=== PATIENT | male | born 1950 | race Caucasian/White ===

== ENCOUNTER 2020-06-20 08:38 | Day surgery (SDC) | payer OTHER ==
[2020-06-16 17:39] LABS: BASOPHILS % (AUTO) 0.5 % (0.0-5.0); EOSINOPHILS % (AUTO) 2.5 % (0.0-8.0); HEMATOCRIT 41.8 % (42-54); LYMPHOCYTES % (AUTO) 32.9 % (21.0-51.0); MEAN CORPUSCULAR HEMOGLOBIN 30.7 pg (27.0-33.0); MEAN CORPUSCULAR HGB CONC 32.3 g/dL (32.0-36.0); MONOCYTES % (AUTO) 10.6 % (3.0-13.0); PLATELET COUNT (AUTO) 274 K/uL (130-400); RED CELL DISTRIBUTION WIDTH 14.1 % (11.0-15.5); WHITE BLOOD COUNT (AUTO) 7.6 K/uL (4.8-10.8)
[2020-06-16 17:43] LABS: CREATININE 1.2 mg/dL (0.5-1.5); POTASSIUM 4.3 mmol/L (3.5-5.1)
[2020-06-16 17:45] LABS: INR 0.99 (0.85-1.15); PARTIAL THROMBOPLASTIN TIME 26.3 SEC (26.3-35.5); PROTHROMBIN TIME 10.7 SEC (9.6-11.6)
[2020-06-19 15:05] VITALS: BP 78/50
--- NOTE | 2020-06-19 16:02 | NUR ---
CARVEDILOL PATIENT ADVISED ON 06/16/2020 TO STOP CARVEDILOL DUE TO LOW BLOOD PRESSURE READING DURING PRE-OP APPT BY Senthil BEAL RN PER REBECCA KEITH. PATIENT STATES HAS CONTINUED CARVEDILOL BECAUSE OF A HIGH BLOOD PRESSURE READING ON 06/17/2020. PATIENT STATES THERE HAS BEEN NO DROP IN BLOOD PRESSURE READINGS.
[2020-06-20] VITALS (12 sets, daily range): BP systolic 108–143; BP diastolic 71–88
[~2020-06-20] VITALS: Ht 182.9 cm; Wt 118.0 kg
[~2020-06-20 08:38] MED LIST: AEC81 PO; ALLO300T2 PO; ATOR40TA69 PO; CARV25TA PO; CLOP75TA14 PO; DIPH50CA4 PO; FLUT16H NASAL; FURO40TA5 PO; GABA600T10 PO; LISI10TA7 PO; METF-445 PO; POTA10CA44 PO
[2020-06-20] MEDS ORDERED: SODIUM CHLORIDE 0.9% 1000ML 1,000 ML IV SCH (09:45)
[2020-06-20] MEDS ORDERED: LIDOCAINE HCL 2% VISCOUS 15 ML UDCUP PO SCH (09:45)
[2020-06-20] MEDS ORDERED: FLUMAZENIL 0.1MG/1ML 5ML VIAL IV ONE (09:57)
[2020-06-20] MEDS ORDERED: FENTANYL CITRATE PF 50 MCG/1 ML 2ML VIAL ONE (09:57)
[2020-06-20] MEDS ORDERED: MIDAZOLAM HCL 1 MG/ML 2ML VIAL ONE (09:58)
--- NOTE | 2020-06-20 13:15 | NUR ---
DISCHARGED HOME WITH , PRINTED AND VERBAL DISCHARGE INSTRUCTIONS GIVEN . VERBALIZES UNDERSTANDING. NO ACUTE DISTRESS NOTED . TO CAR VIA WHEELCHAIR
== END 2020-06-20 13:15 | disposition home or self-care (01) ==
LOC: DAH 08:38
PROVIDERS: ATTEND Internal Medicine Cardiovascular Disease
DX: I25.10 Atherosclerotic heart disease of native coronary artery without angina pectoris (principal); I34.0 Nonrheumatic mitral (valve) insufficiency; I25.2 Old myocardial infarction; I10 Essential (primary) hypertension; E78.5 Hyperlipidemia, unspecified; E11.9 Type 2 diabetes mellitus without complications; Z95.5 Presence of coronary angioplasty implant and graft; Z79.899 Other long term (current) drug therapy; Z79.01 Long term (current) use of anticoagulants
CPT/HCPCS: 36415; 80048; 82948; 85025; 85610; 85730; 93005; 93313; A4215; A4216; A4221; A4222; A4223 ×3; A4606; A4663; J2250; J3010; J7030; 99152; 99153; J3490

== ENCOUNTER → 2020-06-23 | Outpatient (CLI) | payer OTHER ==
[~2020-06-23] MED LIST changes: +REGADENOSON 0.4 MG/5 ML PF SYG IVP SCH
== END | disposition home or self-care (01) ==
LOC: SHCH 08:17
PROVIDERS: ATTEND Internal Medicine Cardiovascular Disease
DX: I10 Essential (primary) hypertension (principal); I34.0 Nonrheumatic mitral (valve) insufficiency
CPT/HCPCS: 78452; 93017; 96374; A9500 ×2; J2785

== ENCOUNTER → 2021-04-23 | Outpatient (CLI) | payer OTHER ==
[~2021-04-23] MED LIST changes: +LISI10TA24 PO; -LISI10TA7 PO; -REGADENOSON 0.4 MG/5 ML PF SYG IVP SCH
== END | disposition home or self-care (01) ==
LOC: SHCH 11:13
PROVIDERS: ATTEND Internal Medicine Cardiovascular Disease
DX: R55 Syncope and collapse (principal); I25.5 Ischemic cardiomyopathy; R06.00 Dyspnea, unspecified; E78.5 Hyperlipidemia, unspecified; E11.9 Type 2 diabetes mellitus without complications
CPT/HCPCS: 93306; 93356

== ENCOUNTER 2021-06-15 05:40 | Day surgery (SDC) | payer OTHER ==
[2021-06-13 12:44] LABS: BASOPHILS % (AUTO) 0.4 % (0.0-5.0); EOSINOPHILS % (AUTO) 1.7 % (0.0-8.0); HEMATOCRIT 43.3 % (42-54); LYMPHOCYTES % (AUTO) 27.3 % (21.0-51.0); MEAN CORPUSCULAR HEMOGLOBIN 31.3 pg (27.0-33.0); MEAN CORPUSCULAR HGB CONC 32.6 g/dL (32.0-36.0); MONOCYTES % (AUTO) 10.9 % (3.0-13.0); NEUTROPHILS % (AUTO) 59.3 % (40.0-77.0); PLATELET COUNT (AUTO) 257 K/uL (130-400); RED BLOOD CELL COUNT(AUTO) 4.51 MIL/uL (4.50-6.20); RED CELL DISTRIBUTION WIDTH 14.6 % (11.0-15.5); WHITE BLOOD COUNT (AUTO) 8.3 K/uL (4.8-10.8)
[2021-06-13 12:53] LABS: CREATININE 0.9 mg/dL (0.5-1.5); POTASSIUM 4.5 mmol/L (3.5-5.1)
[2021-06-13 13:06] LABS: INR 1.15 (0.85-1.15); PROTHROMBIN TIME 12.4 SEC (9.6-11.6)
[2021-06-13 13:08] LABS: PARTIAL THROMBOPLASTIN TIME 30.2 SEC (26.3-35.5)
[2021-06-15] VITALS (9 sets, daily range): BP systolic 104–118; BP diastolic 66–78
[~2021-06-15] VITALS: Ht 188 cm; Wt 97.1 kg
[~2021-06-15 05:40] MED LIST changes: -AEC81 PO; -ATOR40TA69 PO; -CARV25TA PO; -CLOP75TA14 PO; -DIPH50CA4 PO; -FLUT16H NASAL; -FURO40TA5 PO; -GABA600T10 PO; -LISI10TA24 PO; -METF-445 PO; -POTA10CA44 PO
[2021-06-15] MEDS ORDERED: 0.9%NACL 1000ML 1,000 ML IV ONE (06:08)
[2021-06-15] MEDS ORDERED: CLOP75TA14 PO (06:45)
[2021-06-15] MEDS ORDERED: CARV12.511 PO (06:45)
[2021-06-15] MEDS ORDERED: LISI20TA24 PO (06:45)
[2021-06-15] MEDS ORDERED: METF-445 PO (06:45)
[2021-06-15] MEDS ORDERED: FURO40TA5 PO (06:45)
[2021-06-15] MEDS ORDERED: APIX5TAB PO (06:45)
[2021-06-15] MEDS ORDERED: MAGN200T8 PO (06:45)
[2021-06-15] MEDS ORDERED: tylenol pm PO (06:45)
[2021-06-15] MEDS ORDERED: SERT-439 PO (06:45)
[2021-06-15] MEDS ORDERED: POTA10CA44 PO (06:45)
[2021-06-15] MEDS ORDERED: TRAM50TA4 PO ×2 (06:45→11:21)
[2021-06-15] MEDS ORDERED: CEFAZOLIN SODIUM 1 GM VIAL ONE (08:09)
[2021-06-15] MEDS ORDERED: MIDAZOLAM HCL 1 MG/ML 2ML VIAL ONE ×4 (08:09→10:21)
[2021-06-15] MEDS ORDERED: BUPIVACAINE/PF 0.25% 30ML VIAL IJ ONE (08:09)
[2021-06-15] MEDS ORDERED: MEPERIDINE-PF 25 MG/ML SYG ONE ×4 (08:10→10:21)
[2021-06-15] MEDS ORDERED: LIDOCAINE HCL 400MG/20ML VIAL ONE (08:12)
[2021-06-15] MEDS ORDERED: IOHEXOL-350 50ML VIAL IV ONE (10:26)
[2021-06-15] MEDS ORDERED: ACETAMINOPHEN WITH CODEINE 1 TAB TAB PO PRN (11:30)
== END 2021-06-15 15:10 | disposition home or self-care (01) ==
LOC: DAH 05:40
PROVIDERS: ATTEND Internal Medicine Cardiovascular Disease
DX: I25.5 Ischemic cardiomyopathy (principal); I48.91 Unspecified atrial fibrillation; I11.0 Hypertensive heart disease with heart failure; I50.22 Chronic systolic (congestive) heart failure; E11.9 Type 2 diabetes mellitus without complications; I49.3 Ventricular premature depolarization; I47.2 Ventricular tachycardia; I25.10 Atherosclerotic heart disease of native coronary artery without angina pectoris; E78.5 Hyperlipidemia, unspecified; Z98.890 Other specified postprocedural states; Z79.01 Long term (current) use of anticoagulants; Z79.899 Other long term (current) drug therapy; Z79.82 Long term (current) use of aspirin; Z95.1 Presence of aortocoronary bypass graft; Z90.49 Acquired absence of other specified parts of digestive tract
CPT/HCPCS: 33249; 36415; 71045; 80048; 82948 ×2; 85025; 85610; 85730; 93005; 93620; A4215; A4216; A4221; A4222; A4223 ×3; A4606; A4663; A6258; A6402; C1722; C1730 ×2; C1894 ×2; C1895; J0690; J1644; J2175 ×3; J2250 ×3; J3490 ×2; J7030; Q9967; 99156; 99157

== ENCOUNTER → 2022-10-15 | Outpatient (CLI) | payer OTHER ==
[~2022-10-15] MED LIST changes: +APIX5TAB PO; +CARV12.511 PO; +CLOP-31 PO; +FURO40TA5 PO; +LISI20TA24 PO; +MAGN200T8 PO; +METF-445 PO; +POTA10CA45 PO; +SERT-439 PO; +TRAM50TA4 PO; +tylenol pm PO
== END | disposition home or self-care (01) ==
LOC: SHCH 14:21
PROVIDERS: ATTEND Internal Medicine Cardiovascular Disease
DX: I08.8 Other rheumatic multiple valve diseases (principal); I11.9 Hypertensive heart disease without heart failure; I25.10 Atherosclerotic heart disease of native coronary artery without angina pectoris; E11.9 Type 2 diabetes mellitus without complications; E78.5 Hyperlipidemia, unspecified; Z95.1 Presence of aortocoronary bypass graft
CPT/HCPCS: 93306

== ENCOUNTER → 2022-10-18 | Outpatient (CLI) | payer OTHER ==
[~2022-10-18] MED LIST changes: +REGADENOSON 0.4 MG/5 ML PF SYG IVP ONE
== END | disposition home or self-care (01) ==
LOC: SHCH 08:13
PROVIDERS: ATTEND Internal Medicine Cardiovascular Disease
DX: I11.9 Hypertensive heart disease without heart failure (principal); I25.10 Atherosclerotic heart disease of native coronary artery without angina pectoris; R07.89 Other chest pain; E11.9 Type 2 diabetes mellitus without complications; E78.5 Hyperlipidemia, unspecified; Z95.1 Presence of aortocoronary bypass graft; Z95.5 Presence of coronary angioplasty implant and graft; Z79.02 Long term (current) use of antithrombotics/antiplatelets; Z79.899 Other long term (current) drug therapy; Z79.84 Long term (current) use of oral hypoglycemic drugs
CPT/HCPCS: 78452; 96374; 93017; J2785; A9500 ×2

== ENCOUNTER 2023-02-05 18:44 | Emergency (ER) | payer OTHER ==
[~2023-02-05] VITALS: Ht 188 cm; Wt 106.6 kg
[~2023-02-05 18:44] MED LIST changes: +ATOR40TA71 PO; +CETI10TA57 PO; +DONE5TAB33 PO; +LEVO-70 PO; +MELA1TAB73 PO; +METR-172 PO; -POTA10CA45 PO; +POTA10CA85 PO; -REGADENOSON 0.4 MG/5 ML PF SYG IVP ONE; -SERT-439 PO; +SERT150C PO; -TRAM50TA4 PO
[2023-02-05 20:07] LABS: BASOPHILS # (AUTO) 0.02 K/uL (0.00-0.20); BASOPHILS % (AUTO) 0.2 % (0.0-5.0); EOSINOPHILS # (AUTO) 0.18 K/uL (0.00-0.70); EOSINOPHILS % (AUTO) 1.9 % (0.0-8.0); HEMATOCRIT 39.3 % (42-54); IMMATURE GRANULOCYTE ABSOLUTE 0.06 K/uL (0-1); LYMPHOCYTES # (AUTO) 1.8 K/uL (1.0-4.8); MEAN CORPUSCULAR HEMOGLOBIN 29.9 pg (27.0-33.0); MEAN CORPUSCULAR HGB CONC 32.3 g/dL (32.0-36.0); MEAN CORPUSCULAR VOLUME 92.5 fL (79-99); MONOCYTES # (AUTO) 0.9 K/uL (0.1-1.0); MONOCYTES % (AUTO) 9.8 % (3.0-13.0); NEUTROPHILS # (AUTO) 6.5 K/uL (1.8-7.7); NEUTROPHILS % (AUTO) 68.5 % (40.0-77.0); PLATELET COUNT (AUTO) 226 K/uL (130-400); RED BLOOD CELL COUNT(AUTO) 4.25 MIL/uL (4.50-6.20); RED CELL DISTRIBUTION WIDTH 15.4 % (11.0-15.5); WHITE BLOOD COUNT (AUTO) 9.5 K/uL (4.8-10.8)
[2023-02-05 20:09] LABS: APPEARANCE,URINE CLEAR (CLEAR); BILIRUBIN,URINE NEGATIVE (NEGATIVE); COLOR,URINE YELLOW (YELLOW); GLUCOSE, URINE (UA) NEGATIVE (NEGATIVE); KETONES,URINE NEGATIVE (NEGATIVE); LEUKOCYTE ESTERASE ,URINE 500 Leu/uL (NEGATIVE); NITRATE,URINE 2+ (NEGATIVE); OCCULT BLOOD,URINE MODERATE (NEGATIVE); PH,URINE 5.5 (5.0-8.0); PROTEIN,URINE 70 mg/dL (NEGATIVE); UROBILINOGEN,URINE 0.2 mg/dL (0.2-1.0)
[2023-02-05 20:13] LABS: ADD UA MICROSCOPIC YES
[2023-02-05 20:17] LABS: BACTERIA,URINE FEW /HPF (None Seen); MUCUS,URINE RARE LPF (None Seen); SQUAMOUS EPITHELIAL CELL,UR RARE /HPF (0-2); WBC,URINE 26-50 /HPF (0-1)
[2023-02-05 20:30] LABS: ALBUMIN 3.4 g/dL (3.5-5.0); BILIRUBIN,TOTAL 0.6 mg/dL (0.2-1.0); CREATININE 0.8 mg/dL (0.5-1.5); POTASSIUM 3.7 mmol/L (3.5-5.1); TOTAL PROTEIN, SERUM 7.6 g/dL (6.0-8.3)
[2023-02-05] MEDS ORDERED: LEVO-70 PO (21:30)
[2023-02-05] MEDS ORDERED: CEFTRIAXONE 1G VIAL IVPB ONE (21:30)
[2023-02-05] MEDS ORDERED: LEVOFLOXACIN 750 MG TABLET ONE (21:35)
[2023-02-05 21:37] VITALS: BP 140/76; PULSE 92; RESP 16; O2SAT 100
[2023-02-05] MEDS ORDERED: LEVOFLOXACIN 750 MG TABLET PO SCH (22:00)
== END 2023-02-05 21:41 | disposition home or self-care (01) ==
LOC: EDH 18:44
DX: N39.0 Urinary tract infection, site not specified (principal); R31.9 Hematuria, unspecified; E78.00 Pure hypercholesterolemia, unspecified; I10 Essential (primary) hypertension; Z79.01 Long term (current) use of anticoagulants; Z79.84 Long term (current) use of oral hypoglycemic drugs; Z90.49 Acquired absence of other specified parts of digestive tract; Z95.1 Presence of aortocoronary bypass graft
CPT/HCPCS: 36415; 74176; 80053; 81001; 83605; 83690; 84484; 85025; 87040; 87077; 87088; 87186; 93005

== ENCOUNTER → 2023-03-25 | Outpatient (CLI) | payer OTHER | END | disposition home or self-care (01) | LOC: RAH 08:50 | PROVIDERS: ATTEND Internal Medicine | DX: I70.0 Atherosclerosis of aorta (principal); R10.9 Unspecified abdominal pain; K90.0 Celiac disease | CPT/HCPCS: 76775 ==

== ENCOUNTER → 2023-04-17 | Outpatient (CLI) | payer OTHER ==
[~2023-04-17] MED LIST changes: +AMOX1TAB16 PO; -CETI10TA57 PO; -CLOP-31 PO; +CLOP75TA32 PO; -LEVO-70 PO; +LISI10TA24 PO; +MELA10TA20 PO; -MELA1TAB73 PO; +METO5TAB7 PO; -METR-172 PO; +POTA-200 PO; +SERT200C PO; +SPIR25TA6 PO; -tylenol pm PO
== END | disposition home or self-care (01) ==
LOC: SHCH 14:33
PROVIDERS: ATTEND Internal Medicine Cardiovascular Disease
DX: I08.3 Combined rheumatic disorders of mitral, aortic and tricuspid valves (principal); I11.9 Hypertensive heart disease without heart failure; E78.5 Hyperlipidemia, unspecified; E11.9 Type 2 diabetes mellitus without complications
CPT/HCPCS: 93306

== ENCOUNTER 2023-05-16 05:56 | Day surgery (SDC) | payer OTHER ==
[2023-05-14 11:31] LABS: BASOPHILS # (AUTO) 0.04 K/uL (0.00-0.20); BASOPHILS % (AUTO) 0.6 % (0.0-5.0); EOSINOPHILS # (AUTO) 0.13 K/uL (0.00-0.70); EOSINOPHILS % (AUTO) 2.1 % (0.0-8.0); HEMATOCRIT 44.6 % (42-54); IMMATURE GRANULOCYTE ABSOLUTE 0.04 K/uL (0-1); LYMPHOCYTES # (AUTO) 2.1 K/uL (1.0-4.8); LYMPHOCYTES % (AUTO) 32.6 % (21.0-51.0); MEAN CORPUSCULAR HEMOGLOBIN 27.2 pg (27.0-33.0); MEAN CORPUSCULAR HGB CONC 31.8 g/dL (32.0-36.0); MEAN CORPUSCULAR VOLUME 85.4 fL (79-99); MONOCYTES # (AUTO) 0.6 K/uL (0.1-1.0); MONOCYTES % (AUTO) 9.8 % (3.0-13.0); NEUTROPHILS # (AUTO) 3.4 K/uL (1.8-7.7); NEUTROPHILS % (AUTO) 54.3 % (40.0-77.0); PLATELET COUNT (AUTO) 284 K/uL (130-400); RED BLOOD CELL COUNT(AUTO) 5.22 MIL/uL (4.50-6.20); RED CELL DISTRIBUTION WIDTH 17.7 % (11.0-15.5); WHITE BLOOD COUNT (AUTO) 6.3 K/uL (4.8-10.8)
[2023-05-14 11:41] LABS: INR 1.05 (0.85-1.15); PROTHROMBIN TIME 12.1 SEC (9.6-11.6)
[2023-05-14 11:43] LABS: PARTIAL THROMBOPLASTIN TIME 31.5 SEC (26.3-35.5)
[2023-05-14 11:51] LABS: CREATININE 1.2 mg/dL (0.5-1.5)
[2023-05-14 11:53] LABS: POTASSIUM 6.3 mmol/L (3.5-5.1)
[2023-05-14 16:53] VITALS: BP 90/61; PULSE 69; RESP 17
[2023-05-16] VITALS (9 sets, daily range): BP systolic 82–100; BP diastolic 44–65; PULSE 69–70; RESP 14–20
[~2023-05-16] VITALS: Ht 188 cm; Wt 92.2 kg
[~2023-05-16 05:56] MED LIST changes: -AMOX1TAB16 PO; -CARV12.511 PO; -LISI20TA24 PO; -METF-445 PO; -METO5TAB7 PO; -POTA10CA85 PO; -SERT150C PO
[2023-05-16] MEDS ORDERED: 0.9%NACL 1000ML 1,000 ML IV ONE (07:05)
[2023-05-16] MEDS ORDERED: LIDOCAINE HCL 1% MDV 50ML VIAL ONE (07:10)
[2023-05-16] MEDS ORDERED: BUPIVACAINE/PF 0.25% 30ML VIAL IJ ONE ×2 (07:10→07:22)
[2023-05-16] MEDS ORDERED: IOHEXOL-350 50ML VIAL IV ONE (07:10)
[2023-05-16] MEDS ORDERED: CEFAZOLIN SODIUM 1 GM VIAL ONE (07:11)
[2023-05-16] MEDS ORDERED: MIDAZOLAM HCL 1 MG/ML 2ML VIAL ONE ×2 (07:34→08:07)
[2023-05-16] MEDS ORDERED: MEPERIDINE-PF 25 MG/ML SYG ONE ×2 (07:34→08:07)
[2023-05-16] MEDS ORDERED: BACITRACIN 1 EACH PACKET TP ONE (08:44)
[2023-05-16] MEDS ORDERED: ACETAMINOPHEN WITH CODEINE 1 TAB TAB PO PRN (09:30)
[2023-05-16] MEDS ORDERED: ACETAMINOPHEN 500 MG TABLET PO PRN (09:30)
[2023-05-16] MEDS ORDERED: TRAM50TA4 PO (09:39)
[2023-05-16] MEDS ORDERED: CARV12.511 PO (10:38)
== END 2023-05-16 12:15 | disposition home or self-care (01) ==
LOC: DAH 05:56
PROVIDERS: ATTEND Internal Medicine Cardiovascular Disease
DX: I25.5 Ischemic cardiomyopathy (principal); I45.89 Other specified conduction disorders; I50.42 Chronic combined systolic (congestive) and diastolic (congestive) heart failure; I48.19 Other persistent atrial fibrillation; Z79.01 Long term (current) use of anticoagulants; Z79.899 Other long term (current) drug therapy
CPT/HCPCS: 80048; 85025; 85610; 85730; 36415 ×2; 93005; 84132; 33249; 33225; 82948 ×2; 71045; C1769 ×2; C1882; C1900; C1896; J0690; J7030; J0665 ×2; J2250 ×2; J2175 ×2; J3490; Q9967; A4215; A6251; A4222; A4221; A4663; A4216; A6258; A4606; A4223 ×3; 99156; 99157; C1895

== ENCOUNTER → 2023-05-21 | Outpatient (CLI) | payer MEDICARE ==
[~2023-05-21] MED LIST changes: +CARV12.511 PO; -SPIR25TA6 PO; +TRAM50TA4 PO
[2023-05-21 16:20] LABS: POTASSIUM 4.5 mmol/L (3.5-5.1)
== END | disposition home or self-care (01) ==
LOC: LAB 13:22
PROVIDERS: ATTEND Internal Medicine Cardiovascular Disease
DX: I25.5 Ischemic cardiomyopathy (principal)
CPT/HCPCS: 36415; 80048

== ENCOUNTER → 2023-08-19 | Outpatient (CLI) | payer OTHER | END | disposition home or self-care (01) | LOC: SHCH 11:21 | PROVIDERS: ATTEND Internal Medicine Cardiovascular Disease | DX: I08.8 Other rheumatic multiple valve diseases (principal); I25.10 Atherosclerotic heart disease of native coronary artery without angina pectoris | CPT/HCPCS: 93306 ==